=== PATIENT | female | born 1980 ===

== ENCOUNTER 2021-10-02 11:15 | Inpatient (IN) | payer OTHER ==
[~2021-10-02] VITALS: Ht 160 cm; Wt 97.1 kg
== END 2021-10-06 11:30 | disposition home or self-care (01) | DRG 743 ==
LOC: O/R 10-03 10:46 → OB/GYN 10-03 10:46 → SURH 10-03 11:15 → OB/GYN 10-03 21:28
PROVIDERS: ADMIT Obstetrics & Gynecology; ATTEND Obstetrics & Gynecology
PROC: 0UT70ZZ Resection of Bilateral Fallopian Tubes, Open Approach (ICD-10-PCS; 2021-10-03)
PROC: 0UT90ZZ Resection of Uterus, Open Approach (ICD-10-PCS; principal; 2021-10-03 12:45)
DX: D25.1 Intramural leiomyoma of uterus (principal); Z20.822 Contact with and (suspected) exposure to COVID-19